=== PATIENT | female | born 1935 | race Caucasian/White ===

== ENCOUNTER 2016-12-12 19:43 | Emergency (ER) | payer OTHER ==
[~2016-12-12] VITALS: Ht 167.6 cm; Wt 60.3 kg
[2016-12-13 01:33] VITALS: BP 167/87
== END 2016-12-13 01:33 | disposition home or self-care (01) ==
LOC: ED 19:43
DX: S00.93XA Contusion of unspecified part of head, initial encounter (principal); X58.XXXA Exposure to other specified factors, initial encounter; Y93.89 Activity, other specified; Y99.8 Other external cause status; Y92.89 Other specified places as the place of occurrence of the external cause

== ENCOUNTER 2017-02-05 19:11 | Emergency (ER) | payer OTHER ==
[~2017-02-05] VITALS: Ht 165.1 cm; Wt 61.2 kg
[2017-02-05 20:17] LABS: BASOPHIL % 0.3 % (0-2); PLATELET COUNT 155 x10^3mcL (130-400); RED CELL DISTRIBUTION WIDTH 14.2 % (11.5-14.5)
[2017-02-05 21:11] LABS: CALCIUM 8.6 mg/dL (8.5-10.1); CARBON DIOXIDE 27.2 mmol/L (21-32); CHLORIDE SERUM 105 mmol/L (98-107); CREATININE SERUM 0.8 mg/dL (0.6-1.0); GLUCOSE SERUM 92 mg/dL (74-106); POTASSIUM SERUM 3.7 mmol/L (3.5-5.1); SODIUM SERUM 141 mmol/L (136-145)
[2017-02-05 21:15] LABS: ALBUMIN 3.6 g/dL (3.4-5.0); ALKALINE PHOSPHATASE 84 U/L (46-116); ALT/SGPT 17 U/L (14-59); AST/SGOT 23 U/L (15-37); BILIRUBIN TOTAL 0.4 mg/dL (0.20-1.00); TOTAL PROTEIN, SERUM 6.7 g/dL (6.4-8.2)
[2017-02-06 00:35] VITALS: BP 117/33
== END 2017-02-06 00:36 | disposition home or self-care (01) ==
LOC: ED 19:11
PROVIDERS: Emergency Medicine
DX: T78.40XA Allergy, unspecified, initial encounter (principal); F03.90 Unspecified dementia, unspecified severity, without behavioral disturbance, psychotic disturbance, mood disturbance, and anxiety; M19.90 Unspecified osteoarthritis, unspecified site; Z88.8 Allergy status to other drugs, medicaments and biological substances; Z79.899 Other long term (current) drug therapy; X58.XXXA Exposure to other specified factors, initial encounter
CPT/HCPCS: 36415; J7512; Q0163

== ENCOUNTER 2017-02-09 07:48 | Inpatient (IN) | payer OTHER ==
[~2017-02-09] VITALS: Ht 165.1 cm; Wt 64.5 kg
--- NOTE | 2017-02-09 08:04 | NUR ---
PT WAS BROUGHT IN BY AMBULANCE W/CC OF RASH. PT CAME [facility] W/CC OF REDNESS, TINGLING AND THROAT ITCHINESS SINCE THIS AM. 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 PER MEDIC, PT WOKE UP W/REDNESS ISOLATED TO FACE AND NECK WHICH WAS WORSE THAN INITIAL PRESENTATION 4 DAYS AGO. PT SPEAKING IN CLEAR FULL SENTENCES. NO S/S OF DISTRESS NOTED. 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 PT ALSO HYPERTENSIVE UPON ARRIVAL. OTHERWISE, VSS. RESPS E/U. NO S/S OF DISTRESS NOTED. COMFORT MEASURES IMPLEMENTED. CALL LIGHT W/IN REACH. DR. BARRETT AT BEDSIDE FOR MSE. WILL CONTINUE TO MONITOR.
[2017-02-09 08:34] LABS: BASOPHIL % 0.2 % (0-2); PLATELET COUNT 177 x10^3mcL (130-400); RED CELL DISTRIBUTION WIDTH 14.2 % (11.5-14.5)
--- NOTE | 2017-02-09 08:34 | NUR ---
PATIENT MEDICATED ORDERED.
[2017-02-09 08:40] LABS: CARBON DIOXIDE 30.1 mmol/L (21-32); CHLORIDE SERUM 104 mmol/L (98-107); CREATININE SERUM 0.8 mg/dL (0.6-1.0); GLUCOSE SERUM 85 mg/dL (74-106); POTASSIUM SERUM 3.2 mmol/L (3.5-5.1); SODIUM SERUM 138 mmol/L (136-145)
--- NOTE | 2017-02-09 09:06 | NUR ---
PATIENT PLACED ON BEDPAN AT THIS TIME.
[2017-02-09] MEDS ORDERED: CENTRUM SILVER1 EACH PO (09:36)
[2017-02-09] MEDS ORDERED: ASPIR 8181 MG PO (09:36)
[2017-02-09] MEDS ORDERED: ATORVASTATIN CA40 M1 PO (09:36)
[2017-02-09] MEDS ORDERED: BENADRYL ALLERG25 M1 PO (09:37)
[2017-02-09] MEDS ORDERED: CITALOPRAM HYDR40 M1 PO (09:37)
[2017-02-09] MEDS ORDERED: ATIVAN0.5 M1 PO (09:38)
[2017-02-09] MEDS ORDERED: NAMENDA10 M2 PO (09:38)
[2017-02-09] MEDS ORDERED: LEVOTHYROXINE0.05 M2 PO (09:38)
[2017-02-09] MEDS ORDERED: ARICEPT10 MG PO (09:38)
[2017-02-09] MEDS ORDERED: BACITRACIN-NEO-1 OIN (09:39)
[2017-02-09] MEDS ORDERED: PRE20 PO (09:39)
[2017-02-09] MEDS ORDERED: SENNA8.6 M2 PO (09:39)
[2017-02-09] MEDS ORDERED: GOOD NEIGH1200 MG/15 PO (09:40)
[2017-02-09] MEDS ORDERED: LOPERAMIDE HCL2 MG PO (09:40)
[2017-02-09] MEDS ORDERED: LORAZEPAM1 MG PO (09:40)
[2017-02-09] MEDS ORDERED: MAPAP EXTRA ST500 M1 PO (09:40)
[2017-02-09] MEDS ORDERED: VOLTAREN-XR100 MG PO (09:41)
--- NOTE | 2017-02-09 09:49 | NUR ---
REPORT CALLED TO ASH LADD IN TELE. UPDATES PROVIDED, ALL QUESTIONS ANSWERED ALL CONCERNS ADDRESSED. WILL ENDORSE CARE AND TRANSFER SHORTLY.
[2017-02-09 10:25] LABS: MAGNESIUM 2.1 mg/dL (1.8-2.4); PHOSPHOROUS 3.5 mg/dL (2.5-4.9)
[2017-02-09 10:26] LABS: CHOLESTEROL/HDL RATIO 1.8
[2017-02-09 10:35] VITALS: BP 193/88
[2017-02-09 10:35] LABS: T3 TOTAL 0.83 ng/mL
--- NOTE | 2017-02-09 10:45 | NUR ---
PATIENT TRANSFERRED FROM ED VIA [facility] WITH 2 RNS, ASSISTED W/ TRANSFER TO HOSPITAL BED, PATIENT ABLE TO VERBALIZE NEEDS WITH CLEAR SPEECH, HX OF DEMENTIA, AAOX3 PERSON, PLACE, SITUATION, PERRLA, FOLLOWS SIMPLE COMMANDS, ACTIVE ROM, HX OF CVA AND W/RSIDED WEAKNESS, LUNGS CTA, SYM CHEST EXPANSION, DENIES SOB, NO JVD NOTED, PLACED ON TELE #35 SR W/ ELEVATED T-WAVE, RECEIVED KCL IN ER FOR POTASSIUM LEVEL OF 3.2, DENIES HEART RELATED PAIN OR DISCOMFORT, S1&S2 NOTED, HYPOACTIVE BOWEL SOUNDS X4 QUADS, REPORTS BM ON 02/08/17 SOFT, DENIES N&V, PALPABLE PERIPHERAL PULSES, CAP REFILL <3SECONDS, TRACE EDEMA NOTED TO FACE AND NECK, WITH REDDNESS AND C/O ITCHING, BRUISING NOTED TO BUE/BLE, WITH LARGE SCAB ON RIGHT KNEE, AND GENERALIZED SCABS AT BLE, IV AT LEFT HAND 22GAUGE, PATENT INFUSING NS AT 100ML/HR, REORIENTED TO ROOM AND CALL LIGHT, BEDALARM ON, BED AT LOWEST SETTING, PATIENT PLACED IN ROOM NEAR NURSING STATION, WILL CONTINUE TO PROVIDE CARE.
[2017-02-09 10:53] LABS: FREE T4 1.23 ng/dL (0.76-1.46); FREE THYROXINE INDEX 3.7 ug/dL (1.4-4.5); T4(THYROXINE) 10.3 ug/dL (4.7-13.3)
--- NOTE | 2017-02-09 12:51 | NUR ---
BENADRYL DOSE ADMINISTERED ORDERED, PT IS RESTING IN BED, ASSISTED WITH BEDPAN, ABOUT 250ML OF CLEAR YELLOW URINE NOTED IN BEDPAN, SCREEN PRINTING PASTER REPORTS BP 198/72, DR AVILEZ MADE AWARE, PATIENT IS ASYMPTOMATIC, DENIES DIZZINESS OR JUNE, WILL F/U WITH NEW OR CHANGED ORDERS, CALL LIGHT WITHIN REACH, WILL CONTINUE TO PROVIDE CARE.
[2017-02-09 13:03] VITALS: BP 192/79
--- NOTE | 2017-02-09 13:31 | NUR ---
SPOKE WITH MELANIE LINCOLN, PT'S DAUGHTER, MELANIE STATES PT SUFFERS FROM HIVES INDUCED BY STRESS, APPARENTLY PT "IS NOT HAPPY AT SNF AND HAS BEEN CALLING HER TO PLEASE PICK HER UP" DR AVILEZ AT STATION AND SPOKE WITH MELANIE ALSO.
[2017-02-09 13:57] VITALS: BP 155/51
--- NOTE | 2017-02-09 15:05 | NUR ---
ASSISTED WITH BEDPAN, PT HAD LOOSE BM, PROVIDED HYGIENE CARE, WILL CONTINUE TO PROVIDE CARE.
[2017-02-09 15:24] LABS: UA SPECIFIC GRAVITY <=1.005 (1.005-1.035); microscopic required? YES; urine erythrocyte TRACE (NEGATIVE)
[2017-02-09 15:44] LABS: AMPHETAMINE QUAL UR NONE DETECTED (NEG <=1000)
[2017-02-09 15:55] VITALS: BP 180/72
--- NOTE | 2017-02-09 17:40 | NUR ---
ASSISTED PT TO POSITION OF COMFORT FOR DINNER, HYGIENE CARE PROVIDED, CALL LIGHT WITHIN REACH.
[2017-02-09 18:00] VITALS: BP 160/84
--- NOTE | 2017-02-09 18:49 | NUR ---
RESTIN IN BED, KCL INFUSING, DENIES CRAMPING OR DISCOMFORT AT THIS TIME, CALM AND COOPERATIVE, NO OTHER SIGNIFICANT CHANGES NOTED, WILL ENDORSE CARE TO NIGHT NURSE.
--- NOTE | 2017-02-09 19:30 | NUR ---
PT IS AAO X 3, CONFUSED AT TIMES. TELE 35, NSR (75). PULSES ARE PRESENT AND THERE IS SOME FACIAL EDEMA. LUNG SOUNDS ARE CTA ON RA. PT HAS WEAKNESS BLE AND USES A WHEEL CHAIR TO GET AROUND. PT HAS AN IV IN THE L HAND, 20G, INFUSING 100 ML/HR NS. THE BED IS IN THE LOWEST POSITION AND THE CALL LIGHT IS WITHIN REACH. WILL CONTINUE TO MONITOR.
--- NOTE | 2017-02-09 19:40 | NUR ---
BRIAN ESPINAL TOOK THE PT DOWNSTAIRS.
[2017-02-09 21:14] VITALS: BP 133/59
[2017-02-10] VITALS (7 sets, daily range): BP systolic 121–169; BP diastolic 60–74
[2017-02-10 06:47] LABS: BASOPHIL % 0.2 % (0-2); PLATELET COUNT 168 x10^3mcL (130-400); RED CELL DISTRIBUTION WIDTH 14.2 % (11.5-14.5)
[2017-02-10 07:04] LABS: CALCIUM 8.2 mg/dL (8.5-10.1); CARBON DIOXIDE 25.5 mmol/L (21-32); CHLORIDE SERUM 107 mmol/L (98-107); CREATININE SERUM 0.8 mg/dL (0.6-1.0); GLUCOSE SERUM 137 mg/dL (74-106); MAGNESIUM 1.9 mg/dL (1.8-2.4); PHOSPHOROUS 4.4 mg/dL (2.5-4.9); SODIUM SERUM 140 mmol/L (136-145)
--- NOTE | 2017-02-10 09:35 | NUR ---
DOCTOR'S ROUNDED AND SPOKE TO PT ABOUT PLAN OF CARE. CONSULT WITH SUPPLY ASSISTANT SPECIALIST FOR FACIAL AND NECK CELLULITIS. DAUGHTER CONTACTED ABOUT PLAN OF CARE.
--- NOTE | 2017-02-10 09:50 | NUR ---
CALLED DAUGHTER AND INFORMED ABOUT PLAN OF CARE. DAUGHTER WOULD LIKE TO BE NOTIFIED OF ANY UPDATES WITH MOTHER'S CARE. DAUGHTER ON PHONE WITH MOTHER CURRENTLY.
--- NOTE | 2017-02-10 12:19 | NUR ---
PT IS RESTING COMFORTABLY IN BED. ALL NEEDS HAVE BEEN MET THROUGHOUT THE SHIFT. BED IN LOWEST POSITION, 2X RAILS, CALL LIGHT WITHIN REACH. WILL ENDORSE TO ONCOMING SHIFT.
--- NOTE | 2017-02-10 13:10 | NUR ---
RECEIVED REPORT FROM ASH MEDRANO. PT SEEN LYING IN BED, FORGETFUL AND CONFUSED. NO SOB/PAIN NOTED. W/ REDNESS ON THE FACE AND DRY SCABS AND PRUPLISH DISCOLORATIONS ON BLE. IV SITE PATENT AND INTACT. SIDE RAILS UPX2. CALL LIGHT ON REACH. WILL CONT TO MONITOR
--- NOTE | 2017-02-10 13:40 | NUR ---
RECEIVED PT BACK FROM [facility]ERY. PT IS AAOX4. C/O MILD DIZZINESS. NO SOB NOTED. STATED THAT HER LEFT TOES ARE MILDLY NUMB, ABLE TO MOVE TOES. DENIES PAIN AT THIS TIME. W/ DRESSING ON THE LLE, CDI. LLE ELEVATED W/ PILLOWS. PT ABLE TO VOID AFTER SURGERY. CALL LIGHT ON REACH. WILL CONT TO MONITOR
--- NOTE | 2017-02-10 16:36 | NUR ---
PT IS UPSET AND CONFUSED AT THIS TIME, ORIENTED TO PERSON AND BIRTHDATE ONLY. PT WANTS TO TALK TO HER DAUGHTER, CALLED PT'S DAUGHTER MELANIE BUT SHE'S NOT ANSWERING THE CALL, WAITING FOR HER CALLBACK. PT MEDICATED WITH BENADRYL 25 MG IVP FOR ITCHINESS ON THE FACE.
--- NOTE | 2017-02-10 17:01 | NUR ---
PT LYING IN BED, CONFUSED. ABLE TO FOLLOW SIMPLE COMMANDS. PT WAS ABLE TO TALK TO HER DAUGHTER OVER THE PHONE. SIDE RAILS UPX2. CALL LIGHT ON REACH. HOB ELEVATED AT 30 DEG. BED ALARM ON. WILL CONT TO MONITOR
--- NOTE | 2017-02-10 17:56 | NUR ---
ASSISTED PT TO SIT ON A CHAIR TO EAT DINNER.
--- NOTE | 2017-02-10 19:40 | NUR ---
RECEIVED PT , SITTING UP IN BED, AWAKE, ALERT, CONFUSED AND DISORIENTED. RESP. EVEN AND UNLABORED. ON ROOM AIR, NO DISTRESS NOTED. SR ON THE MONITOR, DENIES CHEST PAIN OR PRESSURE. REDNESS TO FACE, BUE, BLE, PERINEAL AREA AND RT BUTTOCK. DENIES ITCHINESS. IVF, NS AT 50ML/HR, INTACT AND INFUSING VIA LH HAND, SITE CLEAR.NO COMPLAINTS NOTED AT THIS TIME. CALL LIGHT WITHIN REACH. WILL CONTINUE TO MONITOR.
--- NOTE | 2017-02-10 20:30 | NUR ---
PT IS UPSET AND CONFUSED AT THIS TIME, CLIMBING OUT OF BED, REQUESTING FOR DAUGHTER AND CAT. RE-ORIENTED TO PLACE AND TIME. PULLED OUT IV. MEDICATED WITH ATIVAN PO ORDERED. WILL RE-INSERT AND IV AND CONTINUE TO MONITOR.
--- NOTE | 2017-02-10 22:30 | NUR ---
NEW IV SITE RESTARTED ON THE RFA WITH #22G ANGIO. IVF RESTARTED , INFUSING AT THIS TIME. WILL CONTINUE TO MONITOR.
--- NOTE | 2017-02-10 22:41 | NUR ---
REMAINS CONFUSED AND DISORIENTED. DR BONILLA MADE AWARE. BENADRYL IV GIVEN ORDERED. WILL CONTINUE TO MONITOR.
--- NOTE | 2017-02-10 23:50 | NUR ---
NO COMPLAINTS NOTED AT THIS TIME. DOOZING OFF AND ON AT THIS TIME. WILL CONTINUE TO MONITOR.
--- NOTE | 2017-02-11 06:28 | NUR ---
AFEBRILE AND VITAL SIGNS STABLE. DENIES PAIN OR ANY DISCOMFORT AT THIS TIME. DUE MEDS GIVEN ORDERED. REMAINS CONFUSED AND DISORIENTED. CONT. TO RE-ORIENT. PT TO PLACE AND TIME. IVF INTACT AND INFUSING WELL, SITE CLEAR. KEPT COMFORTABLE. WILL ENDORSE TO INCOMING NURSE.
[2017-02-11 06:36] VITALS: BP 192/84
--- NOTE | 2017-02-11 06:46 | NUR ---
B/P READING SHOWS 192/84. HYDRALAZINE 10MG IV GIVEN ORDERED. MD AWARE. WILL ENDORSE TO INCOMING NURSE.
[2017-02-11 06:48] LABS: BASOPHIL % 0.3 % (0-2); PLATELET COUNT 174 x10^3mcL (130-400); RED CELL DISTRIBUTION WIDTH 14.4 % (11.5-14.5)
[2017-02-11 06:59] LABS: CALCIUM 8.6 mg/dL (8.5-10.1); CHLORIDE SERUM 106 mmol/L (98-107); CREATININE SERUM 0.7 mg/dL (0.6-1.0); GLUCOSE SERUM 125 mg/dL (74-106); PHOSPHOROUS 3.9 mg/dL (2.5-4.9); POTASSIUM SERUM 3.6 mmol/L (3.5-5.1); SODIUM SERUM 140 mmol/L (136-145)
--- NOTE | 2017-02-11 07:05 | NUR ---
RECIEVED REPORT FROM PASTORA ALEMAN AT BEDSIDE ALL QUESTIONS AND CONCERNS ANSWERED. PT IS RESTING IN BED WITH EVEN CHEST RISE. BED AT LOW AND CALL LIGHT WITHIN REACH.
[2017-02-11 09:40] VITALS: BP 141/63
--- NOTE | 2017-02-11 10:00 | NUR ---
DR. KAN AT BEDSIDE UPDATING PLAN OF CARE.
--- NOTE | 2017-02-11 10:51 | NUR ---
PT IS AOX1 ABLE TO FOLLOW VERBAL COMMANDS AND MAKE NEEDS KNOWN. PT ON RA NO SIGNS OF SOB OR ACUTE DISRRESS. BL LUNGS DIMINISH LUNG SOUNDS. SYMMETRIC CHEST RISE. TRACE EDEMA NOTED TO BLE. S1S2 PRESENT, DENIES CHEST PAIN. BS ACTUVE X4, NONTENDER PALPATION TO ABD. NO SIGNS OF N/V. REDNESS TO FACE AND MID NECK. REDNESS IS RECEEDING FROM TRACINGS ON FACE AND NECK. SKIN IS DRY AND INTACT. PT IS ABLE TO TURN SELF. DENIES PAIN. NS INFUSING AT 50ML/HR TO RHAND. IV SITE WNL. BED AT LOW AND CALL LIGHT WITHIN REACH.
[2017-02-11 12:36] VITALS: BP 129/57
--- NOTE | 2017-02-11 15:00 | NUR ---
PT REFUSE TELE, DR. BECKHAM IS MADE AWARE. BED AT LOW AND CALL LIGHT WITHIN REACH.
[2017-02-11 17:45] VITALS: BP 95/75
--- NOTE | 2017-02-11 18:40 | NUR ---
PT IS AOX1 ABLE TO FOLLOW VERBAL ORDERS AND MAKE NEEDS KNOWN. PT ON RA NO SIGNS OF SOB OR ACUTE DISTRESS. PT'S REDNESS HAVE RECEED FROM TRACING. PT DENIES PAIN AT THIS TIME. WILL ENRORSE ALL CARE TO ONCOMING RN. BED AT LOW AND CALL LIGHT WITHIN REACH.
--- NOTE | 2017-02-11 19:00 | NUR ---
PT ATTEMPTING TO LEAVE ROOM AGAINST ADVICE. PT PULLED IV OUT SHE ATTEMPTS TO LEAVE ROOM. PT WAS AMBULATED BACK TO BED. PT IS RESTING IN BED AT THIS TIME. ENDORSE ALL CARE TO PASTORA ALEMAN. BED ALARM ON. BED AT LOW AND CALL LIGHT WITHIN REACH.
--- NOTE | 2017-02-11 20:00 | NUR ---
RECEIVED PT IN BED, ALERT , CONFUSED AND DISORIENTED . CONT. TO RE-ORIENT TO PLACE AND TIME. RESP. EVEN AND UNLABORED. ON ROOM AIR, NO DISTRESS NOTED. REFUSED TELE. MONITOR, AWARE. DENIES CP OR ANY DISCOMFORT AT THIS TIME. PT ALSO REFUSED SCDS TO BLE. PT ALSO PULLED OUT IV PER DAY SHIFT REPORT. WILL ATTEMPT TO RE-INSERT. KEPE COMFORTABLE IN BED. REDNESS TO FACE, BUE , BLE , RT BUTTOCK AND PERINEAL AREA. ABLE TO MOVE AAL EXT. CALL LIGHT WITHIN REACH. WILL CONTINUE TO MONITOR.
--- NOTE | 2017-02-11 21:45 | NUR ---
IV RE-INSERTED TO RH HAND WITH #22G ANGIO. INFUSING WELL. WILL CONTINUE TO MONITOR.
[2017-02-11 21:49] VITALS: BP 201/96
--- NOTE | 2017-02-11 22:20 | NUR ---
B/P READING SHOWS 201/96, DR BONILLA NOTIFIED. HYDRALAZINE 10MG IV GIVEN ORDERED. WILL CONTINUE TO MONITOR.
[2017-02-11 23:44] VITALS: BP 149/73
--- NOTE | 2017-02-11 23:47 | NUR ---
B/P RECHECK SHOWS 149/73. PT DENIES ANY DISCOMFORT. DOOZING OFF AND ON AT THIS TIME. WILL CONTINUE TO MONITOR.
[2017-02-12 06:14] VITALS: BP 151/75
--- NOTE | 2017-02-12 06:28 | NUR ---
SLEPT MOST OF THE NIGHT. NO COMPLAINTS NOTED AT THIS TIME. AFEBRILE AND VITAL SIGNS STABLE. DUE MEDS GIVEN ORDERED, HOSSEIN. WELL. IVF INTACT AND INFUSING WELL, SITE CLEAR.ABLE TO USE THE BSC WITH ASSIST. VOIDING FREELY. KEPT COMFORTABLE. WILL ENDORSE TO INCOMING NURSE.
--- NOTE | 2017-02-12 07:40 | NUR ---
RC'D PT RESTING IN BED CONFUSED. PT IS AWAKE AND ALERT, CONFUSED TO LOCATION AND TX. PT REFSUED MD LIDYA AWARE. DENIES CHEST PAIN/PRESSURE AT THIS TIME. PALP PULSES. FACIAL, BUE AND BLE PRESENT. NOTED DECREASE FROM ADMISSION. RESPIRATIONS EQUAL AND UNLABORED BILAT. LUNGS CLEAR TO AUSCULTATION. DENIES SOB. ABDOMEN SOFT AND NONTENDER. ACTIVE BS. DENIES N/V. VOIDS FREELY. AMBULATORY WITH 1 PERSON ASSIST TO BSC WITH WALKER. OLD SCABS NOTED. REDNESS NOTED IN PERINEAL AREA. PT DENIES PAIN AT THIS TIME. RIGHT HAND IV RUNNING NS @50ML/HR, WNL. PT IS CONFUSED, TALKATIVE AND SLIGHTLY ANXIOUS. BED IN LOW POSITION. EDUCATED ON USING CALL LIGHT WHEN NEEDING ASSISTANCE OUT OF BED TO BSC. CALL LIGHT IN REACH. WILL CONTINUE TO REMIND AND REINFORCE USING CALL LIGHT. WILL CONTINUE TO MONITOR.
[2017-02-12 10:20] VITALS: BP 154/59
--- NOTE | 2017-02-12 12:15 | NUR ---
PT RESTING IN BED WITH NO APPARENT SIGNS OF DISTRESS. RESPIRATIONS EQUAL AND UNLABORED BILAT. DENIES PAIN AT THIS TIME.
--- NOTE | 2017-02-12 13:35 | NUR ---
PT AGITATED AND ANXIOUS. MEDICATED WITH ATIVAN IVP PRN PER MED ORDERS. WILL CONTINUE TO MONITOR.
[2017-02-12 13:46] VITALS: BP 165/78
--- NOTE | 2017-02-12 15:27 | NUR ---
PT RESTING IN BED WITH EYES CLOSED WITH VISIBLE EQUAL AND UNLABORED RESPIRATIONS. NO APPARENT SIGNS OF DISTRESS. WILL CONTINUE TO MONITOR.
[2017-02-12 16:27] VITALS: BP 167/93
--- NOTE | 2017-02-12 18:08 | NUR ---
PT RESTING IN BED WITH NO APPARENT SIGNS OF DISTRESS. DENIES PAIN AT THIS TIME. PT IS ALERT AND CONFUSED. DENIES CHEST PAIN/PRESSURE. RESPIRATIONS EQUAL AND UNLABORED BILAT. DENIES SOB. RIGHT HAND IV RUNNING NS @ 50ML/HR, WNL. PT IS CALM AND SLEEPY AT THIS TIME. EDUCATED ON USING CALL LIGHT WHEN NEEDING TO GET OUT OF BED TO USE BSC. PT VERBALIZED UNDERSTANDING. WILL CONTINUE TO REMIND AND REORIENT PT. CALL LIGHT IN REACH. BED IN LOW POSITION.
--- NOTE | 2017-02-12 19:30 | NUR ---
RECEIVED REPORT FROM ASH OMALLEY. PT RESTING IN BED COMFORTABLY IN NO ACUTE DISTRESS OR DISCOMFORT. AWAKE, ALERT BUT CONFUSED AND ONLY ORIENTED TO HER NAME. M/S PT. DENIES OF ANY CHEST DISCOMFORT. PER PULSES STRONG. TRACE EDEMA ON BLE. IN RA WITH SAT OF 93%. BREATHING EVENLY AND UNLABORED. WHEEZING ON BUL. BS ACTIVE. ABD SOFT AND NON DISTENDED. LAST BM 02/11 PER RN REPORT. VOIDS FREELY. AMB ASSIST. PRESENTS WITH FACIAL CELLULITIS, BUE ECCHYMOSIS, RED BUTTOCK AND PERINEAL REDNESS. WILL APPLY HYDROCORTISONE CREAM PER ORDER. NO AGITATION NOTED AT THIS TIME. IV ON R HAND PATENT. RE-ORIENTED PT TO SURROUNDINGS AND REMINDED TO STAY IN BED TO PREVENT FALL. SAFETY MEASURES ENSURED. ROOM NEAR NURSE' STATION. BED ALARM ON. CALL LIGHT WITHIN REACH. WILL CONT TO MONITOR PT.
[2017-02-12 20:47] VITALS: BP 141/67
[2017-02-12 21:48] VITALS: BP 141/67
--- NOTE | 2017-02-13 05:03 | NUR ---
PT HAD PERIODS OF CONFUSION BUT COOPERATIVE WITH CARE. EXPERIENCED PERIODS OF ANXIETY MENTIONING ABOUT 'S . ENFORCED THERAPEUTIC COMMUNICATION AND WAS ABLE TO EASE DOWN PATIENT. SLEPT COMFORTABLY ONCE HAVE FALLEN ASLEEP. ASSISTED IN THE COMMODE TWICE. SAFETY MEASURES WERE ENSURED. BED ALARM ON. PT'S BP OF 199/87, HR 60. MADE DR. BONILLA AWARE. WILL WAIT FOR ORDER.
[2017-02-13 05:28] VITALS: BP 191/76
[2017-02-13 05:30] VITALS: BP 199/87
[2017-02-13 06:00] LABS: BASOPHIL % 0.2 % (0-2); PLATELET COUNT 171 x10^3mcL (130-400)
[2017-02-13 06:16] LABS: RED CELL DISTRIBUTION WIDTH 14.6 % (11.5-14.5)
[2017-02-13 06:18] VITALS: BP 123/97
[2017-02-13 06:23] LABS: CHLORIDE SERUM 105 mmol/L (98-107); CREATININE SERUM 0.7 mg/dL (0.6-1.0); GLUCOSE SERUM 106 mg/dL (74-106); MAGNESIUM 1.9 mg/dL (1.8-2.4); PHOSPHOROUS 4.1 mg/dL (2.5-4.9); POTASSIUM SERUM 3.5 mmol/L (3.5-5.1); SODIUM SERUM 140 mmol/L (136-145)
--- NOTE | 2017-02-13 07:50 | NUR ---
RC'D PT RESTING IN BED. PT ANXIOUS AND AGITATED REQUESTING "I WANT TO GO BACK TO MY OLD ROOM. WHY DID YOU MOVE ME. YOU CANT MOVE ME". PT IS AWAKE AND CONFUSED. DENIES CHEST PAIN/PRESSURE. PALP PULSES. NOTED EDEMA PRESENT ON BUE, BLE, AND FACIAL. NOTED DECREASE FROM ADMIT. RESPIRATIONS EQUAL AND UNLABORED BILAT. LUNGS CLEAR TO AUSCULTATION. PT DENIES SOB. ACTIVE BS. ABDOMEN SOFT AND NONTENDER. DENIES N/V. VOIDS FREELY, DENIES BURNING. AMBULATORY WITH 1 PERSON ASSIST TO BSC. GENERALIZED WEAKNESS NOTED. DENIES PAIN AT THIS TIME. RIGHT HAND IV RUNNING NS AT 50ML/HR. PT IS AGITATED AND ANXIOUS. WILL CONTINUE TO REINFORCE AND REMIND PT ABOUT USING CALL LIGHT. CALL LIGHT IN HAND. BED IN LOW POSITION.
[2017-02-13 09:13] VITALS: BP 117/61
[2017-02-13 09:17] VITALS: BP 159/73
--- NOTE | 2017-02-13 09:50 | NUR ---
PT AGITATED AND ANXIOUS. MEDCAITED WITH AITVAN PRN IVP PER MD ORDERS. WILL CONTINUE TO MONITOR.
--- NOTE | 2017-02-13 11:00 | NUR ---
SPOKE WITH GABBY FROM [place] ABOUT DC PLAN. INQUIRED ABOUT PT NEEDING ASSESSMENT FROM [facility] FOR READMITTANCE PRIOR TO DC. GABBY NOTIFIED ME THAT IT WAS UNNECCESSARY SINCE PT WILL BE LEAVING [place] ON FRIDAY.
--- NOTE | 2017-02-13 12:00 | NUR ---
SANDRA VÁZQUEZ FROM [facility] ARRIVED TO EVALUATE PT FOR POSSIBLE HOMING. DAUGHTER AWARE AND AGREES.
--- NOTE | 2017-02-13 14:35 | NUR ---
PT CURRENTLY RESTING IN BED NO APPARENT SIGNS OF DISTRESS. DENIES PAIN AT THIS TIME. WILL CONTINUE TO MONITOR.
[2017-02-13 14:50] VITALS: BP 159/73
--- NOTE | 2017-02-13 15:28 | NUR ---
PT A/A/O/X1 CONFUSED AND UNABLE TO SIGN FOR DC INFORMATION AND PACKET. LEIA FROM [employer], AWARE THAT INFORMATION WILL BE GIVEN TO HIM AND TRANSFERED TO [facility] UPON ARRIVAL. LEIA BARCENAS UNDERSTANDING. PROVIDED WITH INSTRUCTIONS AND MEDICATION LIST TO BE GIVEN TO [facility] WHEN PT RETURNS. MADE AWARE OF IMPORTANCE TO CONTINUE WITH MD ORDERED PRESCRIPTIONS. MADE AWARE OFF FOLLOW UP APPT TO BE MADE PER [facility]. MADE AWARE OF WORSENING SIGNS AND SYMPTOMS TO RETURN TO ED OR PRESENT TO PCP. LEIA VERBALIZED UNDERSTANDING OF INSTRUCTIONS AND VERBALLY AGREED TO TRANSFER INFORMATION TO [facility] UPON ARRIVAL. IV DC'D, CATHETER INTACT. PT TRANSPORTED VIA WC TO THE LOBBY WITH ALL PERSONAL BELONGINGS IN HAND ACCOMPANIED BY LEIA PULIDO FROM [employer]. PT FREE OF ANY APPARENT DISTRESS. DAUGHTER AWARE AND AGREES WITH TRANSFER/RETURN BACK TO [facility].
--- NOTE | 2017-02-13 16:32 | NUR ---
PHYSICAL THERAPY DAILY NOTES CO-SIGN All documentation done by the Fulfillment Representative for 02/13/17 has been reviewed. I agree with the documentation. Reviewed/Co-Signed by: Deniz Garcia PT Documentation Done by:MOON HOOKS QUALITY ANALYST/TECHNICAL WRITER POC REVIEWED W/QUALITY ANALYST/TECHNICAL WRITER.
== END 2017-02-13 15:26 | DRG 602 ==
LOC: ED 07:48 → MU 09:17 → DU 09:17 → MU 02-12 21:04
PROVIDERS: Emergency Medicine; Family Medicine; ADMIT Family Medicine
DX: L03.211 Cellulitis of face (principal); G93.41 Metabolic encephalopathy; L56.8 Other specified acute skin changes due to ultraviolet radiation; G30.0 Alzheimer's disease with early onset; F02.80 Dementia in other diseases classified elsewhere, unspecified severity, without behavioral disturbance, psychotic disturbance, mood disturbance, and anxiety; I16.0 Hypertensive urgency; I65.21 Occlusion and stenosis of right carotid artery; E03.9 Hypothyroidism, unspecified; E87.6 Hypokalemia; D64.9 Anemia, unspecified; Z68.23 Body mass index [BMI] 23.0-23.9, adult; Z86.73 Personal history of transient ischemic attack (TIA), and cerebral infarction without residual deficits; Z79.52 Long term (current) use of systemic steroids; Z79.82 Long term (current) use of aspirin
CPT/HCPCS: 83880; 84439; 97110-GP; 97116-GP; 97530-GP; J0360; J0690; J1200; J2060; J2920; J3480; J3490; J7030; Q0092